=== PATIENT | male | born 1945 | race Asian ===

== ENCOUNTER → 2020-02-17 | Outpatient (CLI) | payer MEDICARE ==
[~2020-02-17] MED LIST: AMLO1TAB12 PO; ASPI-825 PO; FENO54TA7 PO; INSLAN SQ; INSU100V9 SQ; METF-446 PO; PIOG30TA10 PO
[2020-02-17 09:52] LABS: CALCIUM, TOTAL 9.7 mg/dL (8.8-10.5); CREATININE 1.42 mg/dL (0.60-1.30); POTASSIUM 4.1 mmol/L (3.5-5.1)
[2020-02-17 10:20] LABS: CREATININE,URINE RANDOM 53.1 mg/dL (30.0-125.0)
[2020-02-17 10:38] LABS: CREATININE,URINE 23.2 mg/dL (30.0-125.0)
[2020-02-17 10:45] LABS: CREATININE,SERUM FOR CRCL 1.42 mg/dL (0.60-1.30)
[2020-02-18 10:07] LABS: IGM (IMMUNOFIXATION) 56 mg/dL (15-143)
[2020-02-18 17:27] LABS: ALPHA-1 URINE 2.9 %; ALPHA-2 URINE 5.7 %
== END | disposition home or self-care (01) ==
LOC: LABPV 08:01
PROVIDERS: ATTEND Internal Medicine Nephrology
DX: N18.2 Chronic kidney disease, stage 2 (mild) (principal); R80.9 Proteinuria, unspecified
CPT/HCPCS: 81050; 82570; 82575; 82784; 84156; 84166; 84300; 86160; 86334; 86335

== ENCOUNTER → 2020-08-26 | Outpatient (CLI) | payer MEDICARE, OTHER ==
[2020-08-26 10:30] LABS: CALCIUM, TOTAL 9.2 mg/dL (8.8-10.5); CHOL/HDL RATIO 2.4 (4.2-7.3); CREATININE 1.37 mg/dL (0.60-1.30); PHOSPHORUS 3.4 mg/dL (2.5-4.9); POTASSIUM 4.1 mmol/L (3.5-5.1)
[2020-08-26 11:02] LABS: CREATININE,URINE RANDOM 89.3 mg/dL (30.0-125.0)
== END | disposition home or self-care (01) ==
LOC: LABPV 08:40
PROVIDERS: ATTEND Internal Medicine Nephrology
DX: E11.22 Type 2 diabetes mellitus with diabetic chronic kidney disease (principal); N18.30 Chronic kidney disease, stage 3 unspecified
CPT/HCPCS: 80048; 80061; 82570; 83036; 83970; 84100; 84156